=== PATIENT | female | born 1985 | race African-American/Black ===

== ENCOUNTER 2018-11-24 15:59 | Emergency (ER) | payer MEDICAID ==
[~2018-11-24] VITALS: Ht 162.6 cm; Wt 73.3 kg
[2018-11-24 16:51] VITALS: BP 107/80
[2018-11-24] MEDS ORDERED: IBUPROFEN 600 MG TAB PO ONE (17:15)
== END 2018-11-24 17:49 | disposition home or self-care (01) ==
LOC: ER 16:05
DX: S93.402A Sprain of unspecified ligament of left ankle, initial encounter (principal); I11.9 Hypertensive heart disease without heart failure; F17.210 Nicotine dependence, cigarettes, uncomplicated; X50.1XXA Overexertion from prolonged static or awkward postures, initial encounter; Y93.01 Activity, walking, marching and hiking; Y92.89 Other specified places as the place of occurrence of the external cause; Y99.8 Other external cause status
CPT/HCPCS: 29515; 73600; 82962